=== PATIENT | female | born 1990 | race Caucasian/White ===

== ENCOUNTER 2023-10-03 08:17 | Inpatient (IN) ==
[2023-10-03] MEDS ORDERED: Nalbuphine 10 MG/ML 1 ML VIAL IV PRN (10:17)
[2023-10-03] MEDS ORDERED: Promethazine INJ(RESTRICTED) 25 MG/ML 1 ml VIAL IV PRN (10:17)
[2023-10-03] MEDS ORDERED: miSOPROStol 100 mcg TAB VAGINAL ONE (10:17)
[2023-10-03] MEDS ORDERED: Lactated Ringers 1000 ml BAG 1,000 ML IV ONE (10:17)
[2023-10-03] MEDS ORDERED: Buffered Lidocaine 1% SYRIN 1 ml INTRADERM ONE (10:17)
[2023-10-03] MEDS ORDERED: Lidocaine 1% VIAL 10 MG/ML 30 ML VIAL INJ PRN (10:17)
[2023-10-03] MEDS ORDERED: Lactated Ringers 1000 ml BAG 1,000 ML IV SCH (11:00)
[2023-10-03 12:07] LABS: Urine Benzodiazepine Screen None Detected (None Detect); Urine Cannabinoids Screen None Detected (None Detect); Urine Opiates Screen None Detected (None Detect)
[2023-10-04] MEDS ORDERED: Morphine 10 MG/ML VIAL (1 ml) IV ONE (01:11)
[2023-10-04 01:27] LABS: Hematocrit 39.8 % (35-45); Hemoglobin 13.3 g/dL (11.5-14.3); Mean Corpuscular Hemoglobin 30.2 pg (27-33); Mean Corpuscular Hgb Conc 33.6 g/dL (31-36); Mean Corpuscular Volume 89.9 fL (80-97); Red Blood Count 4.42 10^6/uL (3.63-4.92); White Blood Count 11.6 10^3/uL (3.8-11.8)
[2023-10-04 02:01] LABS: ABS Basophils 0.1 10^3/uL (0.0-0.1); ABS Lymphocytes 1.4 10^3/uL (1.0-4.8); ABS Monocytes 1.1 10^3/uL (0.0-0.9); ABS Nucleated RBC 0.01 10^3/ul; Eosinophil % 0.1 %; Giant Platelets Present; Large Platelets Present; Lymphocyte % 12.1 %; Mean Platelet Volume 11.6 fL (7.5-11.2); Nucleated Red Blood Cells % 0.1 %/100WBC (0.0-0.8); Platelet Count 180 10^3/uL (150-450)
[2023-10-04] MEDS ORDERED: Oxytocin in LR 20,000 MILLI.UNIT/1,000 ML BAG IV SCH ×2 (07:00→19:10)
[2023-10-04] MEDS ORDERED: OBEPIDURAL (200 ML) 200 ML EPIDURAL ONE (10:54)
[2023-10-04] MEDS ORDERED: Lidocaine 1.5% EPI 1:200,000 30 ML SDV ONE (10:54)
[2023-10-04 13:15] LABS: Urine Appearance Clear; Urine Bilirubin Negative (Negative); Urine Blood Negative (Negative); Urine Color Straw; Urine Glucose Negative (Negative); Urine Ketones Negative (Negative); Urine Nitrite Negative (Negative); Urine Protein Negative (Negative); Urine Specific Gravity 1.003 (1.002-1.030); Urine Urobilinogen Negative (Negative)
[2023-10-04] MEDS ORDERED: Lactated Ringers 1000 ml BAG 500 ML IV PRN ×2 (13:47)
[2023-10-04] MEDS ORDERED: Phenylephrine 40 mcg/mL 10mL (400mcg) SYRINGE IV PUSH PRN ×2 (13:47)
[2023-10-04] MEDS ORDERED: Lactated Ringers 1000 ml BAG 1,000 ML IV ONE (13:47)
[2023-10-04] MEDS ORDERED: Sodium Citrate/Citric Acid LIQ 15 ML UDC PO PRN (13:47)
[2023-10-04] MEDS ORDERED: Bupivacaine 0.25% SDV PF 10 ML VIAL INJ ONE (13:50)
[2023-10-04] MEDS ORDERED: Lactated Ringers 1000 ml BAG 1,000 ML IV SCH ×2 (14:00→20:00)
[2023-10-04] MEDS ORDERED: OBEPIDURAL (200 ML) 200 ML EPIDURAL SCH (14:00)
[2023-10-04] MEDS ORDERED: ceFOXitin 2 GM IVPREMIX 2 GM/50 ML BAG IVPB ONE (18:00)
[2023-10-04] MEDS ORDERED: Sodium Citrate/Citric Acid LIQ 15 ML UDC PO ONE (18:00)
[2023-10-04] MEDS ORDERED: Lidocaine 2% w/ EPI 1:200,000 MPF 20 ML SDV VIAL ONE (18:10)
[2023-10-04] MEDS ORDERED: Chloroprocaine 3% 20 ml VIAL ONE (18:10)
[2023-10-04] MEDS ORDERED: Ondansetron 4 mg VIAL 2 MG/ML 2 ml VIAL ONE (18:10)
[2023-10-04] MEDS ORDERED: ceFOXitin 2 GM IVPREMIX 2 GM/50 ML BAG ONE (18:14)
[2023-10-04] MEDS ORDERED: Oxytocin 10 UNITS/ML 1 ML VIAL ONE (18:23)
[2023-10-04] MEDS ORDERED: Acetaminophen IV 1 GM/100ML 1,000 MG/100 ML BAG IV ONE (18:35)
[2023-10-04] MEDS ORDERED: Methylergonovine 0.2 mg AMPULE 1 ml AMP ONE (18:36)
[2023-10-04] MEDS ORDERED: Morphine PF AMP (0.5MG/ML) 5 MG/10 ML AMP ONE (18:42)
[2023-10-04] MEDS ORDERED: Phenylephrine 40 mcg/mL 10mL (400mcg) SYRINGE ONE (18:48)
[2023-10-04] MEDS ORDERED: Dexamethasone IV 4 MG/ML VIAL 1 ml VIAL ONE (18:52)
[2023-10-04] MEDS ORDERED: Varicella Virus Vaccine Live 0.5 ML VIAL SUBCUT ONE (19:08)
[2023-10-04] MEDS ORDERED: Methylergonovine 0.2 mg AMPULE 1 ml AMP IM ONE (19:08)
[2023-10-04] MEDS ORDERED: Witch Hazel PAD JAR TOPICAL PRN (19:08)
[2023-10-04] MEDS ORDERED: RHO D Immune Globulin (HUMAN) 300 MCG = 1,500 I.U. INJ IM PRN (19:08)
[2023-10-04] MEDS ORDERED: Glycerin ADULT 2.4 gm SUPP PR PRN (19:08)
[2023-10-04] MEDS ORDERED: Dibucaine 1% OINT 28.35 GM TUBE PR PRN (19:08)
[2023-10-04] MEDS ORDERED: Metoclopramide 5 MG/ML VIAL (10 mg) IV PRN (19:23)
[2023-10-04] MEDS ORDERED: Naloxone 0.4 mg VIAL 0.4 mg/ml 1 ml VIAL IV PUSH PRN (19:23)
[2023-10-04] MEDS ORDERED: Naloxone 0.4 mg VIAL 0.4 mg/ml 1 ml VIAL IV PRN (19:23)
[2023-10-04] MEDS ORDERED: Acetaminophen IV 1 GM/100ML 1,000 MG/100 ML BAG IV PRN (19:23)
[2023-10-04] MEDS ORDERED: Ondansetron 4 mg VIAL 2 MG/ML 2 ml VIAL IV PRN (19:23)
[2023-10-05 07:02] LABS: ABS Lymphocytes 1.6 10^3/uL (1.0-4.8); ABS Monocytes 1.1 10^3/uL (0.0-0.9); ABS Nucleated RBC 0.01 10^3/ul; Eosinophil % 0.1 %; Hematocrit 36.2 % (35-45); Hemoglobin 12.1 g/dL (11.5-14.3); Lymphocyte % 10.2 %; Mean Corpuscular Hgb Conc 33.3 g/dL (31-36); Mean Corpuscular Volume 89.9 fL (80-97); Mean Platelet Volume 11.2 fL (7.5-11.2); Platelet Count 151 10^3/uL (150-450); Red Blood Count 4.02 10^6/uL (3.63-4.92); White Blood Count 15.7 10^3/uL (3.8-11.8)
[2023-10-07 10:35] VITALS: BP 120/80
== END 2023-10-07 15:41 | disposition home or self-care (01) | DRG 788 ==
LOC: MCHOBOUT 08:17 → MCHOB 10:18
PROVIDERS: ADMIT Obstetrics & Gynecology; ATTEND Obstetrics & Gynecology